=== PATIENT | female | born 1990 | race Caucasian/White ===

== ENCOUNTER 2019-01-17 21:05 | Emergency (ER) | payer BC ==
[~2019-01-17] VITALS: Ht 157.5 cm; Wt 53.5 kg
--- NOTE | 2019-01-17 23:40 | NUR ---
Patient ambulated with stable gait. Patient is here for dog bite to her left buttocks. A/Ox4. Speech is clear, speaks in complete sentences. No neuro deficits noted. Respiratory even and unlabored, no cough no sob.
[2019-01-17 23:46] LABS: BASOPHILS # (AUTO) 0.1 K/uL (0.0-8.0); BASOPHILS % (AUTO) 0.6 % (0.0-2.0); EOSINOPHILS # (AUTO) 0.1 K/uL (0.0-0.7); EOSINOPHILS % (AUTO) 0.6 % (0.0-7.0); HEMATOCRIT 35.8 % (31.2-41.9); HEMOGLOBIN 12.3 g/dL (10.9-14.3); LYMPHOCYTES # (AUTO) 2.1 K/uL (20.0-40.0); LYMPHOCYTES % (AUTO) 24.9 % (20.5-51.5); MEAN CORPUSCULAR HEMOGLOBIN 28.4 uug (24.7-32.8); MEAN CORPUSCULAR HGB CONC 34 g/dL (32.3-35.6); MEAN CORPUSCULAR VOLUME 82.6 fL (75.5-95.3); MONOCYTES # (AUTO) 0.6 K/uL (2.0-10.0); MONOCYTES % (AUTO) 6.5 % (0.0-11.0); NEUTROPHILS # (AUTO) 5.8 K/uL (1.8-8.9); NEUTROPHILS % (AUTO) 67.4 % (38.5-71.5); PLATELET COUNT (AUTO) 277 K/uL (179-408); RED BLOOD CELL COUNT(AUTO) 4.34 MIL/uL (3.63-4.92); WHITE BLOOD COUNT (AUTO) 8.6 K/uL (3.8-11.8)
[2019-01-17 23:55] LABS: CREATININE 0.8 mg/dL (0.6-1.3)
[2019-01-18 00:01] LABS: BILIRUBIN,DIRECT 0.1 mg/dL (0.0-0.2); BILIRUBIN,TOTAL 0.2 mg/dL (0.2-1.0); TOTAL PROTEIN, SERUM 7.7 g/dL (6.4-8.2)
[2019-01-18 00:08] LABS: THYROID STIMULATING HORMONE 1.912 mIU/mL (0.358-3.740)
--- NOTE | 2019-01-18 01:40 | NUR ---
Patient discharged to home in stable conditon. Written and verbal after care instructions given. Patient verbalizes understanding of instructions. Patient ambulated with stable gait.
[2019-01-18 01:42] VITALS: BP 127/79
== END 2019-01-18 01:40 | disposition home or self-care (01) ==
LOC: ER 21:07
DX: F41.0 Panic disorder [episodic paroxysmal anxiety] (principal)
CPT/HCPCS: 36415; 71045; 84443; 85025; 93005; A4663

== ENCOUNTER 2019-05-13 09:38 | Emergency (ER) | payer BC ==
[~2019-05-13] VITALS: Ht 157.5 cm; Wt 54.4 kg
--- NOTE | 2019-05-13 10:05 | NUR ---
RAPID STREP SAMPLE SENT TO LAB...
[2019-05-13] MEDS ORDERED: ACETAMINOPHEN ES 500 MG TABLET ONE (10:30)
[2019-05-13] MEDS ORDERED: ACETAMINOPHEN ES 500 MG TABLET PO ONE (10:31)
--- NOTE | 2019-05-13 10:31 | NUR ---
Pt requested her temp to be taken again, temp = 100.9 (oral), notified and pt medicated with Tylenol 1gm po as ordered by .
--- NOTE | 2019-05-13 10:48 | NUR ---
DC, RX (INCLUDING PRECAUTIONS) AND FOLLOW UP INSTRUCTIONS GIVEN AND EXPLAINED TO PATIENT WHO STATES SHE UNDERSTANDS ALL INSTRUCTIONS.
== END 2019-05-13 10:52 | disposition home or self-care (01) ==
LOC: ER 09:38
DX: J40 Bronchitis, not specified as acute or chronic (principal); J02.8 Acute pharyngitis due to other specified organisms; B97.89 Other viral agents as the cause of diseases classified elsewhere
CPT/HCPCS: 36415; 86403; 87070; A4663; A9150